=== PATIENT | male | born 1950 | race Hispanic/Latino ===

== ENCOUNTER 2017-07-06 15:46 | Emergency (ER) | payer MEDICARE ==
[~2017-07-06 15:46] MED LIST: ASPI-1181 PO; ATOR20TA65 PO; CARV6.25 PO; CLOP75TA32 PO; FOLI1TAB85 PO; GLIP10TA9 PO
[2017-07-06] MEDS ORDERED: TRAMADOL HCL 50 MG TABLET ONE (16:32)
[2017-07-06 16:40] LABS: BASOPHILS % (AUTO) 0.6 % (0.0-5.0); HEMATOCRIT 40.8 % (42-54); LYMPHOCYTES % (AUTO) 21.5 % (21.0-51.0); MEAN CORPUSCULAR HGB CONC 33.1 g/dL (32.0-36.0); MEAN CORPUSCULAR VOLUME 93.7 fL (79-99); MONOCYTES % (AUTO) 9.4 % (3.0-13.0); NEUTROPHILS % (AUTO) 65.5 % (40.0-77.0); PLATELET COUNT (AUTO) 147 K/uL (130-400); RED BLOOD CELL COUNT(AUTO) 4.35 MIL/uL (4.50-6.20); RED CELL DISTRIBUTION WIDTH 15.4 % (11.0-15.5); WHITE BLOOD COUNT (AUTO) 4.5 K/uL (4.8-10.8)
[2017-07-06 16:50] LABS: CREATININE 4.3 mg/dL (0.5-1.5)
[2017-07-06 16:51] LABS: INR 0.94 (0.85-1.15); PARTIAL THROMBOPLASTIN TIME 24.7 SEC (26.3-35.5); PROTHROMBIN TIME 9.9 SEC (9.6-11.6)
[2017-07-06 17:05] LABS: ALBUMIN 3.6 g/dL (3.5-5.0); BILIRUBIN,TOTAL 0.6 mg/dL (0.2-1.0); CREATINE KINASE MB 1.1 ng/mL (0.5-3.6); TOTAL PROTEIN, SERUM 7.8 g/dL (6.0-8.3)
== END 2017-07-06 18:08 | disposition home or self-care (01) ==
LOC: EDH 15:46
DX: S29.9XXA Unspecified injury of thorax, initial encounter (principal); S19.9XXA Unspecified injury of neck, initial encounter; I12.0 Hypertensive chronic kidney disease with stage 5 chronic kidney disease or end stage renal disease; E11.22 Type 2 diabetes mellitus with diabetic chronic kidney disease; N18.6 End stage renal disease; Z99.2 Dependence on renal dialysis; V89.2XXA Person injured in unspecified motor-vehicle accident, traffic, initial encounter; Y93.89 Activity, other specified; Y92.89 Other specified places as the place of occurrence of the external cause; Y99.8 Other external cause status
CPT/HCPCS: 36415; 71045; 80053; 82550; 82553; 84484; 85025; 85610; 85730; 93005